=== PATIENT | male | born 1985 | race African-American/Black ===

== ENCOUNTER 2016-12-15 06:02 | Day surgery (SDC) | payer BC ==
[2016-12-11 14:33] LABS: BASOPHILS 0.3 %; BASOPHILS ABSOLUTE 0.02 10/3/uL (0.0-0.16); EOSINOPHILS 2.8 %; EOSINOPHILS ABSOLUTE 0.21 10/3/uL (0.0-0.53); HEMATOCRIT 39.8 % (40.0-51.0); HEMOGLOBIN 13.5 g/dL (13.6-17.8); IMMATURE GRANULOCYTES 0.3 %; IMMATURE GRANULOCYTES ABSOLUTE 0.02 10/3/uL (0.0-0.11); LYMPHOCYTES 43.3 %; LYMPHOCYTES ABSOLUTE 3.29 10/3/uL (0.67-4.30); MEAN CORPUS HGB CONC 33.9 g/dL (32.0-36.0); MEAN CORPUSCULAR HEMOGLOB 28.7 pg (26.0-34.0); MEAN CORPUSCULAR VOLUME 84.5 fL (80-100); MONOCYTES 6.6 %; NEUTROPHILS 46.7 %; NEUTROPHILS ABSOLUTE 3.55 10/3/uL (2.02-8.40); PLATELET COUNT 270 10/3/uL (150-400); RBC DISTRIBUTION WIDTH 12.6 % (12.0-16.0); RED CELL COUNT 4.71 10/6/uL (4.7-6.1); WHITE BLOOD CELLS 7.6 10/3/uL (4.5-10.5)
[2016-12-11 14:34] LABS: MANUAL DIFF NO %
[2016-12-11 14:40] LABS: PARTIAL THROMBO TIME 30.6 SEC (22.5-37.2)
[2016-12-11 14:44] LABS: BUN (BLOOD UREA NITROGEN) 13 MG/DL (6-23); CALCIUM, SERUM 8.6 MG/DL (8.5-10.4); CHLORIDE, SERUM 108 MMOL/L (96-112); CO2 (CARBON DIOXIDE) 27 MMOL/L (24-34); CREATININE 0.96 MG/DL (0.70-1.30); GFR AFRICAN AMERICAN 120 ML/MIN (>=60); GFR NON AFRICAN AMERICAN 103 ML/MIN (>=60); GLUCOSE, SERUM 114 MG/DL (60-99); POTASSIUM, SERUM 3.8 MMOL/L (3.5-5.3); SODIUM, SERUM 142 MMOL/L (135-148)
--- NOTE | ~2016-12-15 | OP ---
Record Of Operation [facility] [address] [place]. [address] NAME: JV IQBAL : 81 STATUS : [facility]#: [id number] AGE: 31 ADM/REG DATE : 12/15/16 MR#: [id number] REPORT SERV DATE: 12/17/16 DICTATED BY: FRAN COBURN DATE: 12/17/16 REPORT STATUS : Draft TRANSCRIBED BY: JODI DATE: 12/17/16 DATE OF PROCEDURE: 12/15/2016 PREOPERATIVE DIAGNOSIS: Right thyroid lobe nodule, 4 cm in size. POSTOPERATIVE DIAGNOSIS: Right thyroid lobe nodule, 4 cm in size. OPERATIVE PROCEDURE PERFORMED: Right thyroid lobectomy and isthmusectomy along with neural integrity monitoring. DESCRIPTION OF PROCEDURE: At this point, the patient was brought to the operating room and placed on the operating table in the supine position, at which point general endotracheal anesthesia was induced by the Anesthesia Service utilizing a NIM nerve monitoring tube. NIM nerve monitor was then set up to monitor laryngeal musculature throughout the course of the case. At this point, a horizontal skin incision was placed through a natural skin crease in the lower aspect of the neck. Subplatysmal flaps were elevated superiorly and inferiorly, and strap muscles were divided in the midline. The right thyroid lobe was then dissected. Middle thyroid veins were divided with bipolar cautery. Superior and inferior pole vessels were also isolated with a right-angle clamp and divided with Harmonic scalpel. The thyroid isthmus was divided adjacent to the left thyroid lobe. The superior and inferior parathyroid glands were presumably identified, but were not pathologically confirmed and were swept posterolaterally. A combination of sharp and blunt dissection then allowed elevation of the right thyroid lobe off the surface of the trachea. At this point, the right thyroid lobe was removed from its position in the neck. What appeared to be parathyroid tissue remained present. Recurrent laryngeal nerves were stimulable, and specimen was sent to Pathology. Pathology returned as hyperplasia and no significant sign of malignancy. At this point, wound was closed in multiple layers consisting of deep Vicryl suture followed by closure of the skin with Prolene. Steri-Strips were applied, and the patient was turned back toward Anesthesia, aroused from anesthesia, and taken to the postanesthesia care unit in satisfactory condition. COMPLICATIONS: None. ESTIMATED BLOOD LOSS: Less than 5 mL. IV FLUIDS: Per Anesthesia. DLA/MODL Fran Coburn M.D. / [id number] Record Of Operation [address] [place]. [address] NAME: JV IQBAL : 81 STATUS : [facility] PAT#: [id number] AGE: 31 ADM/REG DATE : 12/15/16 MR#: [id number] REPORT SERV DATE: 12/17/16 DICTATED BY: FRAN COBURN. DATE: 12/17/16 REPORT STATUS : Draft TRANSCRIBED BY: JODI DATE: 12/17/16 CC: Elder Almazan DO
[~2016-12-15 06:02] MED LIST: ALBUTEROL INH; ALLEGRA180 PO; AMOXIL875 PO
[2016-12-15 06:48] LABS: INTERNATIONAL NORMAL RATI 1.1 UNITS (-)
== END 2016-12-15 16:58 | disposition home or self-care (01) ==
LOC: SDC 06:02
PROVIDERS: Otolaryngology
PROC: 0GBH0ZZ Excision of Right Thyroid Gland Lobe, Open Approach (ICD-10-PCS; principal; 2016-12-15 07:30)
DX: E04.1 Nontoxic single thyroid nodule (principal); J45.909 Unspecified asthma, uncomplicated; K21.9 Gastro-esophageal reflux disease without esophagitis; E04.9 Nontoxic goiter, unspecified; F17.200 Nicotine dependence, unspecified, uncomplicated; Z79.2 Long term (current) use of antibiotics; Z79.899 Other long term (current) drug therapy
CPT/HCPCS: 80048; 85025; 85610; 85730; 88307; 88331; A9270-GY; J0690; J2250; J2270; J2405; J2710; J3010